=== PATIENT | female | born 1950 | race American Indian/Alaskan Native ===

== ENCOUNTER 2016-03-20 15:49 | Outpatient (CLI) | payer BC ==
--- NOTE | 2016-03-20 16:53 | XRay Report ---
The lumbar spine: AP and lateral views demonstrates articular spurs at the T12-L1, L2-3 and L3-4 levels as well as superiorly at L5. There is virtual loss of the interspaces from L2-L5. There is also significant narrowing at T11-12 and T12-L1. Vertebral height is generally maintained as is the alignment. The apophyseal joints are difficult to assess. Impression: Multilevel degenerative bone and disc changes as described above. Thoracic spine: There is diffuse anterior spondylosis throughout the mid and lower thoracic bodies. The interspaces are somewhat difficult to assess since many are not identified in the tangential view however all of the spaces appear to be generally narrowed below the level of approximately T5. There is no evidence of significant vertebral collapse or malalignment and. There does appear to be mild decreased mineralization of the bones. No paraspinous soft tissue thickening identified. Impressions: Diffuse degenerative spondylosis and multiple level disc narrowing. LEFT FOOT: The bony architecture is intact. Bony alignment is normal. No soft tissue abnormalities are seen. The joint spaces appear preserved. IMPRESSION: Normal left foot.
== END 2016-03-20 15:50 | disposition home or self-care (01) ==
LOC: XRAY 15:49
PROVIDERS: ATTEND Family Medicine
DX: M47.894 Other spondylosis, thoracic region (principal); M54.9 Dorsalgia, unspecified; M25.572 Pain in left ankle and joints of left foot
CPT/HCPCS: 72070; 72100

== ENCOUNTER 2016-05-13 18:41 | Emergency (ER) | payer OTHER, BC ==
[2016-05-13 20:37] VITALS: BP 157/79
[2016-05-13 21:53] LABS: INR 1.98 (0.87-1.13)
[2016-05-13 21:54] LABS: Partial Thromboplastin Time 36.5 Sec. (24.2-36.6)
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
[2016-05-16] MEDS ORDERED: VERSED ONE (10:04)
[2016-05-16] MEDS ORDERED: SUBLIMAZE ONE (10:05)
--- NOTE | 2016-05-19 18:44 | ED Elopement Review ---
ED Pt Elopement review - Results review Lab results: Laboratory Tests 05/13/16 21:10 PT 22.5 H INR 1.98 H APTT 36.5 - Call Back decision Pt Call Back Decision: Pt to F/U with PMD (CT C-spine showed disc protrusion causing possible mild stenosis at C4-5)
== END 2016-05-14 00:45 | disposition left against medical advice (07) ==
LOC: ED 18:41
DX: M79.605 Pain in left leg (principal); V89.2XXA Person injured in unspecified motor-vehicle accident, traffic, initial encounter; Y93.89 Activity, other specified; Y92.9 Unspecified place or not applicable; Y99.9 Unspecified external cause status; Z53.21 Procedure and treatment not carried out due to patient leaving prior to being seen by health care provider
CPT/HCPCS: 36415; 72125; 85610; 85730

== ENCOUNTER 2017-03-26 15:59 | Outpatient (CLI) | payer BC ==
--- NOTE | 2017-03-26 16:46 | XRay Report ---
FINAL REPORT EXAM: XR ABDOMEN 1V AP HISTORY: PELVIC PAIN TECHNIQUE: Supine abdomen PRIORS: None. FINDINGS: Moderate amount of stool and gas present within the colon. No evidence of colonic or small bowel dilatation. No signs of free air. No abnormal calcifications are identified. Surgical clips in the right upper quadrant noted consistent with prior cholecystectomy. IMPRESSION: Nonobstructive bowel gas pattern. No acute abnormality seen.
== END 2017-03-26 16:00 | disposition home or self-care (01) ==
LOC: XRAY 15:59
PROVIDERS: ATTEND Family Medicine
DX: R10.2 Pelvic and perineal pain (principal); Z90.49 Acquired absence of other specified parts of digestive tract
CPT/HCPCS: 74018

== ENCOUNTER 2021-09-11 14:14 | Outpatient (CLI) | payer MEDICARE ==
--- NOTE | 2021-09-11 15:55 | XRay Report ---
. LEFT ANKLE 3 VIEWS INDICATION: LEFT ANKLE PAIN. COMPARISON: None. IMPRESSION: There is mild nonspecific soft tissue swelling. No acute osseous abnormality or signifi cant joint pathology is appreciated. Small plantar spur is noted. Signer Name: Lee Casarez Jr, MD Signed: 09/11/2021 3:51 PM Workstation Name: [email or web address]
== END 2021-09-11 14:15 | disposition home or self-care (01) ==
LOC: XRAY 14:14
PROVIDERS: ATTEND Family Medicine
DX: S82.892A Other fracture of left lower leg, initial encounter for closed fracture (principal); M77.32 Calcaneal spur, left foot; M79.89 Other specified soft tissue disorders; X58.XXXA Exposure to other specified factors, initial encounter; Y93.89 Activity, other specified; Y92.89 Other specified places as the place of occurrence of the external cause; Y99.8 Other external cause status